=== PATIENT | female | born 1985 | race Caucasian/White ===

== ENCOUNTER 2023-02-01 14:21 | Emergency (ER) | payer MEDICAID, OTHER ==
[~2023-02-01] VITALS: Ht 165.1 cm; Wt 45.5 kg
[2023-02-01 14:38] VITALS: BP 123/71
== END 2023-02-01 14:43 | disposition left against medical advice (07) ==
LOC: EDBD 14:21 → ER 14:21
DX: F10.129 Alcohol abuse with intoxication, unspecified (principal); F15.10 Other stimulant abuse, uncomplicated; Z53.21 Procedure and treatment not carried out due to patient leaving prior to being seen by health care provider; Y90.9 Presence of alcohol in blood, level not specified